=== PATIENT | male | born 1990 | race Caucasian/White ===

== ENCOUNTER 2018-02-09 12:50 | Outpatient (CLI) | payer OTHER | END 2018-02-09 12:51 | disposition home or self-care (01) | LOC: ULT 12:50 | PROVIDERS: ATTEND Family Medicine | DX: R01.1 Cardiac murmur, unspecified (principal); I07.1 Rheumatic tricuspid insufficiency | CPT/HCPCS: 93306 ==

== ENCOUNTER 2022-02-25 19:30 | Outpatient (CLI) | payer OTHER | END 2022-02-25 19:31 | disposition home or self-care (01) | LOC: SLEEPLAB 19:30 | PROVIDERS: ATTEND Internal Medicine | DX: G47.30 Sleep apnea, unspecified (principal); R06.83 Snoring; G47.10 Hypersomnia, unspecified; F41.9 Anxiety disorder, unspecified; D64.9 Anemia, unspecified; G47.00 Insomnia, unspecified; A69.22 Other neurologic disorders in Lyme disease; G71.00 Muscular dystrophy, unspecified; G47.33 Obstructive sleep apnea (adult) (pediatric); G47.31 Primary central sleep apnea | CPT/HCPCS: 95810 ==

== ENCOUNTER 2022-04-08 19:30 | Outpatient (CLI) | payer OTHER | END 2022-04-08 19:31 | disposition home or self-care (01) | LOC: SLEEPLAB 19:30 | PROVIDERS: ATTEND Internal Medicine | DX: G47.30 Sleep apnea, unspecified (principal); G47.33 Obstructive sleep apnea (adult) (pediatric) | CPT/HCPCS: 95811 ==

== ENCOUNTER 2022-04-20 09:26 | Outpatient (CLI) | payer OTHER | END 2022-04-20 09:27 | disposition home or self-care (01) | LOC: RAD 09:26 | PROVIDERS: ATTEND Otolaryngology Otolaryngic Allergy | DX: R13.10 Dysphagia, unspecified (principal); R13.11 Dysphagia, oral phase; R13.12 Dysphagia, oropharyngeal phase; R63.30 Feeding difficulties, unspecified | CPT/HCPCS: 74220; 74230 ==

== ENCOUNTER 2023-08-31 07:48 | Inpatient (IN) | payer OTHER ==
[2023-08-31] MEDS ORDERED: Dexmedetomidine 200 MCG/2 ML VIAL ONE (08:44)
[2023-08-31] MEDS ORDERED: Midazolam HCl 2 mg/2 ml Vial ONE (08:44)
[2023-08-31] MEDS ORDERED: Ketamine In 0.9 % NaCl 50 MG/5 ML SYRINGE ONE (08:44)
[2023-08-31] MEDS ORDERED: LevoFLOXacin D5W 500 mg (100 mL) BAG ONE (09:19)
[2023-08-31] MEDS ORDERED: Clindamycin/D5W 900 mg/50 ml Premix Bag ONE (09:19)
[2023-08-31] MEDS ORDERED: Ondansetron PF 4 MG/2 ML Vial IVP PRN (10:28)
[2023-08-31] MEDS ORDERED: Senokot S 8.6-50 MG TAB PO PRN (10:28)
[2023-08-31] MEDS ORDERED: Electrolyte Replacement Protocol 1 EACH FS SCH (10:45)
[2023-08-31] MEDS ORDERED: Electrolyte Replacement Protocol FS PRN (11:00)
[2023-08-31] MEDS: Sodium Chloride 0.9% 500 ML IV SCH (12:21)
[2023-08-31] MEDS: Ketorolac Tromethamine 30 MG (1 mL) VIAL IVP PRN (12:21)
[2023-08-31 12:49] VITALS: BMI 12.5
[2023-08-31] MEDS: Ketorolac Tromethamine 30 MG (1 mL) VIAL IVP SCH (18:39)
[2023-08-31] MEDS: Sodium Chloride 0.9% 1,000 ML IV SCH ×2 (18:48→23:55)
[2023-08-31] MEDS: Acetaminophen 325 MG TAB PO PRN (21:55)
[2023-09-01] MEDS: HYDROcodone/Acetaminophen 5/325 mg Tablet PO PRN (03:57)
[2023-09-01 06:07] LABS: #Basophils Less than 0.03 10x3/uL (0.0-0.2); %Basophils 0.2 % (0.0-1.0); %Eosinophils 1.4 % (0.0-10.0); %Lymphocytes 7.4 % (21.0-51.0); %Monocytes 9.9 % (0.0-10.0); %Neutrophils 80.8 % (42.0-75.0); Hemoglobin 10.8 g/dL (14.0-18.0); Mean Corpuscular HGB CONC 32.7 g/dL (32.0-36.0); Mean Corpuscular Hemoglobin 29.8 pg (27.0-31.0); Mean Corpuscular Volume 90.9 fL (78.0-98.0); Mean Platelet Volume 11.1 fL (7.4-10.4); Platelet Count 160 10x3/uL (130-400); RBC Distribution Width 13.7 % (11.5-14.5); Red Blood Cell (RBC) Count 3.63 mill/uL (4.70-6.10)
[2023-09-01 06:22] LABS: Phosphorus 2.3 mg/dL (2.3-4.7)
[2023-09-01 06:27] LABS: Anion Gap 15 mmol/L (10-20); BUN (Urea Nitrogen) 4 mg/dL (8.9-20.6); Calc. Creatinine Clearance 188 mL/min (70-130); Calcium 8.1 mg/dL (7.8-10.44); Carbon Dioxide 20 mmol/L (22-29); Chloride 109 mmol/L (98-107); Estimated GFR 162; Glucose 73 mg/dL (70-105); Magnesium 1.5 mg/dL (1.6-2.6); Potassium 3.5 mmol/L (3.5-5.1); Sodium 140 mmol/L (136-145)
[2023-09-01] MEDS: Morphine 2 MG/ML VIAL SLOW IVP PRN (08:17)
[2023-09-01] MEDS: Magnesium 2 GM/50 ML(in water) 2 GM in Premix 1 BAG IVPB SCH (08:17)
[2023-09-01] MEDS: Potassium Bicarbonate/Cit Ac 20 MEQ TAB PO SCH (10:15)
[2023-09-02] MEDS: Simethicone Chewable 80 MG TAB PO SCH (05:32)
[2023-09-02] MEDS: Simethicone Chewable 80 MG TAB ONE (08:45)
[2023-09-02 09:09] VITALS: BMI 12.5
[2023-09-02] MEDS: Simethicone Chewable 80 MG TAB PER TUBE PRN (14:32)
[2023-09-02] MEDS: Polyethylene Glycol 3350 17 GM Packet PO SCH (15:54)
[2023-09-02] MEDS: Fleet Saline Enema 133 ML BOT PR SCH (15:55)
[2023-09-02 19:49] LABS: Magnesium 1.7 mg/dL (1.6-2.6)
[2023-09-03] MEDS: Magnesium 2 GM/50 ML(in water) 2 GM in Premix 1 BAG IVPB SCH (00:41)
[2023-09-03 06:03] LABS: Anion Gap 24 mmol/L (10-20); BUN (Urea Nitrogen) 6 mg/dL (8.9-20.6); Calc. Creatinine Clearance 158 mL/min (70-130); Calcium 9.6 mg/dL (7.8-10.44); Carbon Dioxide 17 mmol/L (22-29); Chloride 97 mmol/L (98-107); Estimated GFR 153; Glucose 51 mg/dL (70-105); Phosphorus 3.1 mg/dL (2.3-4.7); Potassium 3.8 mmol/L (3.5-5.1); Sodium 134 mmol/L (136-145)
[2023-09-03] MEDS: Bisacodyl 10 MG SUPP PR SCH (09:31)
[2023-09-03] MEDS: Polyethylene Glycol 3350 17 GM Packet PO SCH (09:31)
[2023-09-03 12:33] VITALS: BP 106/74; TEMP 98.2
== END 2023-09-03 15:25 | disposition home or self-care (01) | DRG 91 ==
LOC: SDC 07:48 → T4-B 11:25 → OBSVTOIN 09-02 15:17
PROVIDERS: ADMIT Internal Medicine; ATTEND Internal Medicine
PROC: 0DH63UZ Insertion of Feeding Device into Stomach, Percutaneous Approach (ICD-10-PCS; principal; 2023-08-31)
DX: G71.09 Other specified muscular dystrophies (principal); E43 Unspecified severe protein-calorie malnutrition; I95.81 Postprocedural hypotension; K59.00 Constipation, unspecified; Z79.899 Other long term (current) drug therapy; F41.9 Anxiety disorder, unspecified; F32.A Depression, unspecified; Z98.890 Other specified postprocedural states; Z87.891 Personal history of nicotine dependence
CPT/HCPCS: 36415; 74018; 80048; 83735; 84100; 85025; 93005; 93010; B4087; J1885; J1956; J2250; J2272; J3475; J3490; J7050

== ENCOUNTER 2023-12-29 20:35 | Inpatient (IN) | payer OTHER ==
[~2023-12-29 20:35] MED LIST: Iopamidol-370 76% 500 ML MDV (1 ML CHARGE) ONE
[2023-12-29] MEDS ORDERED: Acetaminophen 325 MG TAB PO PRN (22:22)
[2023-12-29] MEDS ORDERED: Ondansetron PF 4 MG/2 ML Vial IVP PRN (22:22)
[2023-12-29 23:11] LABS: Lactic Acid 0.57 mmol/L (0.5-2.2)
[2023-12-29 23:21] LABS: Troponin I 0.076 ng/mL (< 0.028)
[2023-12-29] MEDS ORDERED: Sodium Chloride 0.65% Nasal 44 ML BOT EA NARE PRN (23:23)
[2023-12-29] MEDS: Sodium Chloride 0.9% 500 ML IV SCH (23:45)
[2023-12-30] MEDS: LevoFLOXacin 250 mg/D5W 250 MG in Premix 1 BAG IVPB SCH (00:44)
[2023-12-30 01:22] LABS: Legionella Urinary Ag Negative (Negative); Strep pneumo Urine Ag NEGATIVE (NEGATIVE)
[2023-12-30 04:43] LABS: #Basophils 0.06 10x3/uL (0.0-0.2); %Basophils 0.4 % (0.0-1.0); %Eosinophils 0.9 % (0.0-10.0); %Monocytes 7.2 % (0.0-10.0); %Neutrophils 86.2 % (42.0-75.0); Hematocrit 36.6 % (42.0-52.0); Hemoglobin 11.8 g/dL (14.0-18.0); Mean Corpuscular HGB CONC 32.2 g/dL (32.0-36.0); Mean Corpuscular Hemoglobin 28.9 pg (27.0-31.0); Mean Corpuscular Volume 89.7 fL (78.0-98.0); Mean Platelet Volume 10.8 fL (7.4-10.4); Platelet Count 244 10x3/uL (130-400); RBC Distribution Width 13.5 % (11.5-14.5); Red Blood Cell (RBC) Count 4.08 mill/uL (4.70-6.10)
[2023-12-30 04:58] LABS: Anion Gap 12 mmol/L (10-20); BUN (Urea Nitrogen) 5 mg/dL (8.9-20.6); Calc. Creatinine Clearance 154 mL/min (70-130); Calcium 8.9 mg/dL (7.8-10.44); Carbon Dioxide 26 mmol/L (22-29); Chloride 102 mmol/L (98-107); Estimated GFR 158; Glucose 77 mg/dL (70-105); Potassium 3.7 mmol/L (3.5-5.1); Sodium 136 mmol/L (136-145)
[2023-12-30] MEDS: Enoxaparin 30 MG (0.3 mL) SYRINGE SC SCH (10:23)
[2023-12-30 12:20] VITALS: BMI 10.7
[2023-12-30] MEDS: LevoFLOXacin 750 mg/D5W 750 MG in Premix 1 BAG IVPB SCH (21:13)
[2023-12-31 04:01] LABS: #Basophils 0.04 10x3/uL (0.0-0.2); %Basophils 0.4 % (0.0-1.0); %Eosinophils 0.9 % (0.0-10.0); %Lymphocytes 5.1 % (21.0-51.0); %Monocytes 8.1 % (0.0-10.0); %Neutrophils 85.2 % (42.0-75.0); Hematocrit 36.9 % (42.0-52.0); Hemoglobin 11.8 g/dL (14.0-18.0); Mean Corpuscular Hemoglobin 29.2 pg (27.0-31.0); Mean Corpuscular Volume 91.3 fL (78.0-98.0); Mean Platelet Volume 10.6 fL (7.4-10.4); Platelet Count 274 10x3/uL (130-400); RBC Distribution Width 13.3 % (11.5-14.5); Red Blood Cell (RBC) Count 4.04 mill/uL (4.70-6.10)
[2023-12-31 04:19] LABS: Anion Gap 11 mmol/L (10-20); BUN (Urea Nitrogen) 7 mg/dL (8.9-20.6); Calc. Creatinine Clearance 141 mL/min (70-130); Calcium 8.9 mg/dL (7.8-10.44); Carbon Dioxide 28 mmol/L (22-29); Chloride 102 mmol/L (98-107); Estimated GFR 153; Glucose 78 mg/dL (70-105); Potassium 3.2 mmol/L (3.5-5.1); Sodium 138 mmol/L (136-145)
[2023-12-31] MEDS ORDERED: Electrolyte Replacement Protocol 1 EACH FS SCH (08:43)
[2023-12-31] MEDS: Potassium Chloride 20 MEQ TAB PO SCH (10:50)
[2023-12-31 13:21] VITALS: BP 101/61; TEMP 98.6
== END 2023-12-31 13:29 | disposition home or self-care (01) | DRG 871 ==
LOC: 2NO 21:38 → OBSVTOIN 21:38
PROVIDERS: ADMIT Internal Medicine; ATTEND Internal Medicine
DX: A41.9 Sepsis, unspecified organism (principal); I21.A1 Myocardial infarction type 2; J18.9 Pneumonia, unspecified organism; G71.00 Muscular dystrophy, unspecified; F32.A Depression, unspecified; F41.9 Anxiety disorder, unspecified; G47.30 Sleep apnea, unspecified; Z98.890 Other specified postprocedural states; Z87.891 Personal history of nicotine dependence; R13.12 Dysphagia, oropharyngeal phase; Z83.3 Family history of diabetes mellitus; Z93.1 Gastrostomy status; Z88.0 Allergy status to penicillin; Z74.01 Bed confinement status; Z99.3 Dependence on wheelchair
CPT/HCPCS: 36415; 36416; 71275; 80048; 83605; 84145; 85025; 86141; 87449; 87899; J1956; J7030; Q9967

== ENCOUNTER 2024-02-23 13:14 | Outpatient (CLI) | payer OTHER | END 2024-02-23 13:15 | disposition home or self-care (01) | LOC: SCSRAD 13:14 | PROVIDERS: ATTEND Family Medicine | DX: R05.3 Chronic cough (principal); J18.9 Pneumonia, unspecified organism | CPT/HCPCS: 71046 ==

== ENCOUNTER 2024-04-17 11:28 | Outpatient (CLI) | payer OTHER | END 2024-04-17 11:29 | disposition home or self-care (01) | PROVIDERS: ATTEND Family Medicine | DX: G71.00 Muscular dystrophy, unspecified (principal) ==

== ENCOUNTER 2024-04-24 00:27 | Inpatient (IN) | payer OTHER ==
[2024-04-24] MEDS ORDERED: Electrolyte Replacement Protocol 1 EACH IVPB PRN (01:53)
[2024-04-24 03:10] LABS: #Basophils 0.04 10x3/uL (0.0-0.2); #Eosinophils Less than 0.03 10x3/uL (0.0-0.7); %Basophils 0.2 % (0.0-1.0); %Eosinophils 0.1 % (0.0-10.0); %Lymphocytes 5.2 % (21.0-51.0); %Monocytes 9.9 % (0.0-10.0); %Neutrophils 84.1 % (42.0-75.0); Hematocrit 43.3 % (42.0-52.0); Mean Corpuscular Hemoglobin 28.4 pg (27.0-31.0); Mean Corpuscular Volume 94.7 fL (78.0-98.0); Mean Platelet Volume 12.1 fL (7.4-10.4); Platelet Count 343 10x3/uL (130-400); RBC Distribution Width 16.4 % (11.5-14.5); Red Blood Cell (RBC) Count 4.57 mill/uL (4.70-6.10)
[2024-04-24 03:20] LABS: ALT (SGPT) 16 U/L (Less than 45); AST (SGOT) 35 U/L (11-34); Albumin 3.6 g/dL (3.1-4.5); Alkaline Phosphatase 66 U/L (40-110); Anion Gap 14 mmol/L (10-20); BUN (Urea Nitrogen) 8 mg/dL (8.9-20.6); Bilirubin, Total 0.2 mg/dL (0.3-1.2); Calc. Creatinine Clearance 150 mL/min (70-130); Calcium 9.8 mg/dL (7.8-10.44); Carbon Dioxide 33 mmol/L (22-29); Chloride 96 mmol/L (98-107); Globulin 4.3 g/dL (2.4-3.5); Glucose 176 mg/dL (70-105); Potassium 3.8 mmol/L (3.5-5.1); Protein, Total 7.9 g/dL (6.0-8.3); Sodium 139 mmol/L (136-145)
[2024-04-24 03:44] VITALS: BP 86/65
[2024-04-24] MEDS: Sodium Chloride 0.9% 500 ML IV SCH (03:47)
[2024-04-24] MEDS: Fentanyl CADD 100 ML IV SCH (03:47)
[2024-04-24 03:53] LABS: Base Excess (BEa) 6.4 mEq/L (-2.0 to +3.0); CO2 Tension 55.7 mmHg (35.0-45.0); Calcium, Ionized (arterial) 1.24 mmol/L (1.12-1.30); Carboxyhemoglobin (COHb) 0.7 gm% (0.0-3.0); Hematocrit-ABG 41 % (42.0-52.0); Hemoglobin (Hb) 13.9 g/dL (14.0-18.0); O2 Tension (PaO2), arterial 527.6 mmHg (80.0-100.0); Potassium - ABG Lab 3.66 mmol/L (3.70-5.30); pH, Arterial 7.391 (7.35-7.45)
[2024-04-24] MEDS: Propofol 1,000 MG/100 ML VIAL IV ONE (03:53)
[2024-04-24] MEDS: Fentanyl CADD 100 ML ONE (03:53)
[2024-04-24 03:56] LABS: ALV-art Gradient 115.775 mmHg (0-20); Puncture Site Right Radial artery
[2024-04-24] MEDS ORDERED: Propofol BOLUS 1,000 MG/100 ML VIAL IV PRN (04:00)
[2024-04-24] MEDS ORDERED: Fentanyl BOLUS 250 ML IVPB PRN (04:00)
[2024-04-24] MEDS: NOREPINEPHRINE 8 MG/250 ML-D5W 250 ML IVPB SCH (04:00)
[2024-04-24] MEDS: Propofol 1,000 MG/100 ML VIAL IV PRN (04:00)
[2024-04-24] MEDS ORDERED: Morphine 2 MG/ML VIAL SLOW IVP PRN (04:00)
[2024-04-24] MEDS ORDERED: Sodium Chloride 0.9% 1,000 ML IV SCH (04:30)
[2024-04-24] MEDS ORDERED: Rocuronium Bromide 10 MG/ML (10ML VIAL) ONE (04:33)
[2024-04-24] MEDS ORDERED: Etomidate 40 MG (20 mL) VIAL ONE (04:33)
[2024-04-24] MEDS: Lorazepam 2 MG/ML VIAL SLOW IVP PRN (05:29)
[2024-04-24] MEDS: levETIRAcetam 500 MG (5 mL) VIAL SLOW IVP SCH ×2 (05:45→09:59)
[2024-04-24] MEDS: Lactated Ringer's 1,000 ML IV SCH (06:14)
[2024-04-24] MEDS ORDERED: Vasopressin In 0.9 % NaCl 40 UNIT in Premix 1 BAG IV SCH (06:15)
[2024-04-24] MEDS ORDERED: Electrolyte Replacement Protocol FS PRN (06:15)
[2024-04-24] MEDS: Naloxone HCl 0.4 mg/ml Vial ONE (07:35)
[2024-04-24] MEDS: Ventilator Sedation Protocol 1 EACH FS ONE (07:45)
[2024-04-24] MEDS: NOREPINEPHRINE 8 MG/250 ML-D5W 250 ML ONE (07:46)
[2024-04-24] MEDS: Enoxaparin 30 MG (0.3 mL) SYRINGE SC SCH (10:00)
[2024-04-24] MEDS: Pantoprazole 40 MG VIAL IVP SCH (10:00)
[2024-04-24] MEDS ORDERED: LevoFLOXacin 500 mg/D5W 500 MG in Premix 1 BAG IVPB SCH ×2 (10:00→23:00)
[2024-04-24 12:29] VITALS: TEMP 98
[2024-04-24] MEDS ORDERED: Morphine 4 MG/ML VIAL SLOW IVP PRN (13:58)
[2024-04-24] MEDS ORDERED: Lorazepam 2 MG/ML VIAL SLOW IVP PRN (13:58)
[2024-04-24] MEDS ORDERED: Glycopyrrolate 0.2 MG/ML 5 ML SYRINGE SLOW IVP PRN (13:58)
== END 2024-04-24 15:33 | disposition expired | DRG 871 ==
LOC: 2NO 01:10 → CCU 02:13
PROVIDERS: ADMIT Family Medicine; ATTEND Family Medicine
PROC: 0BH17EZ Insertion of Endotracheal Airway into Trachea, Via Natural or Artificial Opening (ICD-10-PCS; principal; 2024-04-24)
PROC: 0DH67UZ Insertion of Feeding Device into Stomach, Via Natural or Artificial Opening (ICD-10-PCS; 2024-04-24)
PROC: 3E0G76Z Introduction of Nutritional Substance into Upper GI, Via Natural or Artificial Opening (ICD-10-PCS; 2024-04-24)
PROC: XX20X89 Monitoring of Brain Electrical Activity, Computer-aided Detection and Notification, New Technology Group 9 (ICD-10-PCS; 2024-04-24)
PROC: 3E03329 Introduction of Other Anti-infective into Peripheral Vein, Percutaneous Approach (ICD-10-PCS; 2024-04-24)
PROC: 4A033R1 Measurement of Arterial Saturation, Peripheral, Percutaneous Approach (ICD-10-PCS; 2024-04-24)
PROC: 3E033XZ Introduction of Vasopressor into Peripheral Vein, Percutaneous Approach (ICD-10-PCS; 2024-04-24)
PROC: 5A1935Z Respiratory Ventilation, Less than 24 Consecutive Hours (ICD-10-PCS; 2024-04-24)
DX: A41.9 Sepsis, unspecified organism (principal); E43 Unspecified severe protein-calorie malnutrition; J18.9 Pneumonia, unspecified organism; J96.01 Acute respiratory failure with hypoxia; J69.0 Pneumonitis due to inhalation of food and vomit; R65.21 Severe sepsis with septic shock; J93.9 Pneumothorax, unspecified; A69.20 Lyme disease, unspecified; Z68.1 Body mass index [BMI] 19.9 or less, adult; Z66 Do not resuscitate; Z51.5 Encounter for palliative care; F32.A Depression, unspecified; F41.9 Anxiety disorder, unspecified; Z99.3 Dependence on wheelchair; Z88.0 Allergy status to penicillin; Z79.2 Long term (current) use of antibiotics; Z98.890 Other specified postprocedural states; Z87.891 Personal history of nicotine dependence; R62.7 Adult failure to thrive; J38.00 Paralysis of vocal cords and larynx, unspecified; G71.00 Muscular dystrophy, unspecified; R56.9 Unspecified convulsions
CPT/HCPCS: 36416; 36600; 71045; 80053; 82805; 85025; 94002; J1650; J1953; J2060; J2250; J2470; J2704; J3010; J7030; J7120